=== PATIENT | male | born 1935 | race Caucasian/White ===

== ENCOUNTER → 2017-04-18 08:41 | Outpatient (CLI) | payer MEDICARE, OTHER ==
[2014-11-04 09:52] VITALS: BMI 28.2
[~2017-04-18 08:41] MED LIST: BAYER CHEWABLE81 MG PO; COLACE100 MG PO; GLUCOPHAGE500 MG PO; HYDROCODONE-APA1 TAB PO; SENOKOT-S TABLE1 TAB PO
== END | disposition home or self-care (01) ==
LOC: D.NM 08:41
DX: C61 Malignant neoplasm of prostate (principal)

== ENCOUNTER → 2017-04-24 12:10 | Outpatient (CLI) | payer MEDICARE, OTHER ==
[2014-11-04 09:52] VITALS: BMI 28.2
== END | disposition home or self-care (01) ==
LOC: D.CT 12:10
DX: R10.9 Unspecified abdominal pain (principal); C61 Malignant neoplasm of prostate